=== PATIENT | male | born 1975 | race Two or more races ===

== ENCOUNTER 2017-03-18 06:29 | Emergency (ER) | payer BC ==
[~2017-03-18] VITALS: Ht 170.2 cm; Wt 70.0 kg
[2017-03-18 10:19] LABS: BASOPHILS % 0.7 % (0.0-2.0); EOSINOPHILS % 0.4 % (0.0-5.0); HEMATOCRIT. 44.4 % (42.0-52.0); HEMOGLOBIN. 15.6 g/dL (14.0-18.0); LYMPHOCYTES % 16.1 % (20.0-50.0); MEAN CORPUSCULAR HEMOGLOBIN 32.5 pg (28.0-32.0); MEAN CORPUSCULAR HGB CONC 35.1 g/dL (31.0-37.0); MEAN CORPUSCULAR VOLUME 92.7 fL (80.0-94.0); MEAN PLATELET VOLUME 8.1 fl (7.4-10.4); MONOCYTES % 5.9 % (2.0-8.0); NEUTROPHILS % 76.9 % (40.0-76.0); PLATELET 166 x1000/uL (130-400); RED BLOOD CELL COUNT 4.79 mill/uL (4.7-6.1); RED CELL DISTRIBUTION WIDTH 12.9 % (11.6-14.6); WHITE BLOOD COUNT 5.2 x1000/uL (4.5-11.0)
[2017-03-18 10:31] LABS: ALANINE AMINOTRANSFERASE 45 IU/L (13-61); ALBUMIN 3.9 g/dL (3.4-5.0); ANION GAP 10; CALCIUM 8.9 mg/dL (8.5-10.1); CARBON DIOXIDE 29 mEq/L (21-32); CHLORIDE 106 mEq/L (98-107); INDEX HEMOLYSI 1 (1-3); INDEX ICTERIC 1 (1-4); INDEX LIPEMIC 1 (1-3); UREA NITROGEN BLOOD 17 mg/dL (7-21); eGFR > 60 mL/min (>60)
[2017-03-18 10:49] VITALS: BP 115/69
== END 2017-03-18 10:54 | disposition home or self-care (01) ==
LOC: ER 07:36
DX: R11.2 Nausea with vomiting, unspecified (principal); R10.9 Unspecified abdominal pain; R19.7 Diarrhea, unspecified; R53.1 Weakness; R68.2 Dry mouth, unspecified
CPT/HCPCS: 36415; 80053; 85025; 99284; Z7610

== ENCOUNTER 2017-06-29 20:01 | Emergency (ER) | payer BC ==
[~2017-06-29] VITALS: Ht 170.2 cm; Wt 168.0 kg
[2017-06-29 20:07] VITALS: BP 124/88
== END 2017-06-29 22:20 | disposition left against medical advice (07) ==
LOC: ER 20:06
DX: R10.9 Unspecified abdominal pain (principal); Z53.21 Procedure and treatment not carried out due to patient leaving prior to being seen by health care provider

== ENCOUNTER 2017-07-29 15:18 | Emergency (ER) | payer BC ==
[~2017-07-29] VITALS: Ht 170.2 cm; Wt 76.0 kg
[2017-07-29 15:22] VITALS: BP 123/83
[2017-07-29] MEDS ORDERED: METR250T4 PO (15:24)
[2017-07-29] MEDS ORDERED: CIPR-264 PO (15:24)
== END 2017-07-29 17:35 | disposition left against medical advice (07) ==
LOC: ER 17:24
DX: R10.9 Unspecified abdominal pain (principal); Z53.21 Procedure and treatment not carried out due to patient leaving prior to being seen by health care provider

== ENCOUNTER 2017-09-07 12:34 | Inpatient (IN) | payer BC ==
[~2017-09-07] VITALS: Ht 205.7 cm; Wt 69.9 kg
[~2017-09-07 12:34] MED LIST: CIPR-264 PO; METR250T4 PO
[2017-09-07] MEDS ORDERED: SODIUM CHLORIDE 0.9% 1,000 ML IV ONE ×2 (13:58→16:06)
[2017-09-07 15:42] LABS: BASOPHILS % 0.7 % (0.0-2.0); EOSINOPHILS % 0.8 % (0.0-5.0); HEMATOCRIT. 46.7 % (42.0-52.0); HEMOGLOBIN. 16.4 g/dL (14.0-18.0); LYMPHOCYTES % 22.3 % (20.0-50.0); MEAN CORPUSCULAR HEMOGLOBIN 32.7 pg (28.0-32.0); MEAN CORPUSCULAR VOLUME 93.3 fL (80.0-94.0); MEAN PLATELET VOLUME 7.5 fl (7.4-10.4); MONOCYTES % 7.4 % (2.0-8.0); NEUTROPHILS % 68.8 % (40.0-76.0); PLATELET 195 x1000/uL (130-400); RED CELL DISTRIBUTION WIDTH 12.8 % (11.6-14.6)
[2017-09-07 15:45] LABS: CHLORIDE 99 mEq/L (98-107)
[2017-09-07 15:46] LABS: PARTIAL THROMBOPLASTIN TIME 29.4 sec (23.4-31.0); PROTHROMBIN TIME 10.8 sec (9.4-11.6)
[2017-09-07 15:50] LABS: CARBON DIOXIDE 28 mEq/L (21-32)
[2017-09-07 15:56] LABS: TROPONIN I 0.04 ng/mL (0.00-0.04)
[2017-09-07 15:57] LABS: CREATINE KINASE MB FRACTION < 0.5 ng/mL (0.5-3.6)
[2017-09-07] MEDS ORDERED: IOHEXOL-350 100 ML BOTTLE ONE (17:00)
[2017-09-07] MEDS ORDERED: NA PHOS,M-B/NA PHOS,DI-BA ENEMA 118ML PR PRN (17:30)
[2017-09-07] MEDS ORDERED: ONDANSETRON HCL 4MG/2ML VIAL IV PRN (17:30)
[2017-09-07] MEDS ORDERED: LORAZEPAM 2MG/ML CPJ IV PRN (17:30)
[2017-09-07] MEDS ORDERED: GUAIFENESIN 200MG/10ML SUGAR FREE UDC PO PRN (17:30)
[2017-09-07] MEDS ORDERED: DIPHENHYDRAMINE 50MG/ML VIAL IV PRN (17:30)
[2017-09-07] MEDS ORDERED: ZOLPIDEM TARTRATE 5MG TABLET PO PRN (17:30)
[2017-09-07] MEDS ORDERED: DOCUSATE SODIUM 100MG CAPSULE PO PRN (17:30)
[2017-09-07] MEDS ORDERED: MAGNESIUM/ALUMINUM HYDROXIDE/SIMETHICONE 30ML UDC PO PRN (17:30)
[2017-09-07] MEDS ORDERED: CLONIDINE 0.1MG TABLET PO PRN (17:30)
[2017-09-07] MEDS ORDERED: IPRATROPIUM/ALBUTEROL 0.5-3(2.5)MG/3ML NEB INH PRN (17:30)
[2017-09-07] MEDS ORDERED: ACETAMINOPHEN 325MG TABLET PO PRN (17:30)
[2017-09-07] MEDS ORDERED: TRAMADOL 50MG TABLET PO PRN (17:30)
[2017-09-07] MEDS ORDERED: KETOROLAC 15MG/ML VIAL IV PRN (17:30)
[2017-09-07] MEDS ORDERED: NITROGLYCERIN 0.4MG TABLET SL SL PRN (17:30)
[2017-09-07 17:36] LABS: *AMPHETAMINES SCREEN URINE NEGATIVE (NEGATIVE); *BARBITURATES SCREEN URINE NEGATIVE (NEGATIVE); *BENZODIAZEPINES SCREEN URINE NEGATIVE (NEGATIVE); *COCAINE SCREEN URINE NEGATIVE (NEGATIVE); CANNABINOID URINE SCREEN NEGATIVE (NEGATIVE); METHADONE URINE SCREEN NEGATIVE (NEGATIVE); OPIATES URINE SCREEN NEGATIVE (NEGATIVE); PHENCYCLIDINE URINE SCREEN NEGATIVE (NEGATIVE)
[2017-09-07 20:45] VITALS: BP 142/90
[2017-09-07 21:00] VITALS: BP 142/90
[2017-09-07] MEDS: SUCRALFATE 1 G/10 ML UDC PO SCH (23:23)
[2017-09-07] MEDS: FAMOTIDINE 20MG/2ML VIAL IV SCH (23:23)
[2017-09-07 23:39] LABS: CREATINE KINASE 78 IU/L (39-308); CREATINE KINASE MB FRACTION < 0.5 ng/mL (0.5-3.6); TROPONIN I 0.04 ng/mL (0.00-0.04)
[2017-09-07] MEDS: SODIUM CHLORIDE 0.9% 1,000 ML IV SCH (23:57)
[2017-09-08] VITALS: BP 122/82
[2017-09-08 04:00] VITALS: BP 95/55
[2017-09-08] MEDS: SUCRALFATE 1 G/10 ML UDC PO SCH ×4 (06:37→20:01)
[2017-09-08 07:38] VITALS: BP 108/72
[2017-09-08 07:58] LABS: CREATINE KINASE MB FRACTION 0.6 ng/mL (0.5-3.6); TROPONIN I 0.04 ng/mL (0.00-0.04)
[2017-09-08] MEDS: ENOXAPARIN 40MG/0.4ML SYR SUBCUT SCH (09:11)
[2017-09-08] MEDS: FAMOTIDINE 20MG/2ML VIAL IV SCH ×2 (09:13→20:01)
[2017-09-08 12:00] VITALS: BP_SYST 114; BP_SYST 122; BP_SYST 127; BP_DIAS 74; BP_DIAS 75; BP_DIAS 79
[2017-09-08] MEDS: SODIUM CHLORIDE 0.9% 1,000 ML IV SCH (13:05)
[2017-09-08 16:00] VITALS: BP 140/93
[2017-09-08 20:00] VITALS: BP 100/68
[2017-09-09] VITALS: BP 110/71
[2017-09-09] MEDS: SODIUM CHLORIDE 0.9% 1,000 ML IV SCH (02:58)
[2017-09-09 04:00] VITALS: BP 106/69
[2017-09-09] MEDS: SUCRALFATE 1 G/10 ML UDC PO SCH (06:17)
[2017-09-09 06:56] LABS: BASOPHILS % 1.3 % (0.0-2.0); EOSINOPHILS % 1.8 % (0.0-5.0); HEMATOCRIT. 43.3 % (42.0-52.0); HEMOGLOBIN. 15.1 g/dL (14.0-18.0); LYMPHOCYTES % 25.1 % (20.0-50.0); MEAN CORPUSCULAR HEMOGLOBIN 32.8 pg (28.0-32.0); MEAN CORPUSCULAR VOLUME 93.8 fL (80.0-94.0); MONOCYTES % 12.8 % (2.0-8.0); PLATELET 176 x1000/uL (130-400); RED BLOOD CELL COUNT 4.61 mill/uL (4.7-6.1); RED CELL DISTRIBUTION WIDTH 13.2 % (11.6-14.6)
[2017-09-09 08:00] VITALS: BP 106/70
[2017-09-09 08:04] LABS: CARBON DIOXIDE 30 mEq/L (21-32); CHLORIDE 105 mEq/L (98-107)
[2017-09-09 08:14] LABS: TROPONIN I 0.04 ng/mL (0.00-0.04)
[2017-09-09] MEDS: FAMOTIDINE 20MG/2ML VIAL IV SCH (09:00)
[2017-09-09] MEDS: ENOXAPARIN 40MG/0.4ML SYR SUBCUT SCH (09:00)
[2017-09-09 11:27] VITALS: BP 106/70
[2017-09-09 12:00] VITALS: BP_SYST 106; BP_SYST 122; BP_DIAS 70; BP_DIAS 85
== END 2017-09-09 12:10 | disposition home or self-care (01) | DRG 312 ==
LOC: ER 12:34 → 8WST 16:54 → EDBEDREQ 17:01 → SUPCPDRO 17:30 → ENRESERV 18:02
PROVIDERS: ADMIT Internal Medicine; ATTEND Internal Medicine
DX: R55 Syncope and collapse (principal); E87.1 Hypo-osmolality and hyponatremia; I11.9 Hypertensive heart disease without heart failure; K21.9 Gastro-esophageal reflux disease without esophagitis; Z87.09 Personal history of other diseases of the respiratory system; Z79.899 Other long term (current) drug therapy; Z82.49 Family history of ischemic heart disease and other diseases of the circulatory system; Z83.3 Family history of diabetes mellitus
CPT/HCPCS: 36415; 70450; 71010; 71275; 74174; 80048; 80053; 80061; 80305; 82550; 82553; 83036; 83735; 83880; 84443; 84484; 85025; 85610; 85730; 93005; 93306; 93970; 96360; 96361; 99285; J1650; J3490; J7030; Q9967

== ENCOUNTER 2017-09-13 21:37 | Emergency (ER) | payer BC ==
[~2017-09-13] VITALS: Ht 170.2 cm; Wt 68.0 kg
[2017-09-14 00:30] LABS: CLARITY URINE CLEAR (CLEAR); COLOR URINE YELLOW (YELLOW); GLUCOSE URINE NEGATIVE (NEGATIVE); KETONES URINE NEGATIVE (NEGATIVE); LEUKOCYTE ESTERASE URINE NEGATIVE (NEGATIVE); NITRITE URINE NEGATIVE (NEGATIVE); OCCULT BLOOD URINE NEGATIVE (NEGATIVE); PH URINE 7.5 (4.5-8.0); PROTEIN URINE NEGATIVE (NEGATIVE); SPECIFIC GRAVITY URINE 1.007 (1.005-1.030); UROBILINOGEN URINE 0.2 E.U./dL (0.2-1.0)
[2017-09-14] MEDS ORDERED: MAGNESIUM/ALUMINUM HYDROXIDE/SIMETHICONE 30ML UDC PO ONE (05:00)
[2017-09-14 05:45] VITALS: BP 109/72
== END 2017-09-14 06:17 | disposition home or self-care (01) ==
LOC: ER 21:37
DX: R55 Syncope and collapse (principal); I10 Essential (primary) hypertension
CPT/HCPCS: 81003; 82962; 93970; 99285; Z7610

== ENCOUNTER 2018-02-25 14:11 | Emergency (ER) | payer BC ==
[~2018-02-25] VITALS: Ht 172.7 cm; Wt 66.0 kg
[2018-02-25] MEDS ORDERED: MAGNESIUM/ALUMINUM HYDROXIDE/SIMETHICONE 30ML UDC PO STA (15:41)
[2018-02-25] MEDS ORDERED: ONDANSETRON HCL 4MG/2ML VIAL IV STA (15:41)
[2018-02-25] MEDS ORDERED: SODIUM CHLORIDE 0.9% 1,000 ML IV ONE (15:41)
[2018-02-25 15:59] LABS: BASOPHILS % 0.8 % (0.0-2.0); EOSINOPHILS % 0.5 % (0.0-5.0); HEMATOCRIT. 43.7 % (42.0-52.0); HEMOGLOBIN. 15.5 g/dL (14.0-18.0); LYMPHOCYTES % 14.8 % (20.0-50.0); MEAN CORPUSCULAR HEMOGLOBIN 33.3 pg (28.0-32.0); MEAN CORPUSCULAR VOLUME 93.6 fL (80.0-94.0); MEAN PLATELET VOLUME 8.2 fl (7.4-10.4); MONOCYTES % 9.8 % (2.0-8.0); NEUTROPHILS % 74.1 % (40.0-76.0); PLATELET 165 x1000/uL (130-400); RED BLOOD CELL COUNT 4.66 mill/uL (4.7-6.1); RED CELL DISTRIBUTION WIDTH 12.8 % (11.6-14.6)
[2018-02-25 16:03] LABS: INR 1.1; PROTHROMBIN TIME 11.1 sec (9.4-11.6)
[2018-02-25 16:06] LABS: CHLORIDE 99 mEq/L (98-107)
[2018-02-25 17:28] VITALS: BP 116/76
== END 2018-02-25 17:52 | disposition home or self-care (01) ==
LOC: ER 14:11
DX: R11.2 Nausea with vomiting, unspecified (principal); R55 Syncope and collapse; T36.0X5A Adverse effect of penicillins, initial encounter; Y92.018 Other place in single-family (private) house as the place of occurrence of the external cause
CPT/HCPCS: 36415; 80053; 83690; 85025; 85610; 93005; 96360; 99285; J7030; Z7610; J2405

== ENCOUNTER 2018-03-02 21:54 | Emergency (ER) | payer BC ==
[~2018-03-02] VITALS: Ht 170.2 cm; Wt 72.0 kg
[2018-03-02] MEDS ORDERED: NITROGLYCERIN 0.4MG TABLET SL SL PRN (22:30)
[2018-03-02 23:11] LABS: BASOPHILS % 0.9 % (0.0-2.0); EOSINOPHILS % 1.2 % (0.0-5.0); HEMATOCRIT. 42.7 % (42.0-52.0); LYMPHOCYTES % 27.7 % (20.0-50.0); MEAN CORPUSCULAR HEMOGLOBIN 32.6 pg (28.0-32.0); MEAN CORPUSCULAR VOLUME 92.6 fL (80.0-94.0); MEAN PLATELET VOLUME 7.9 fl (7.4-10.4); MONOCYTES % 11.2 % (2.0-8.0); PLATELET 188 x1000/uL (130-400); RED BLOOD CELL COUNT 4.61 mill/uL (4.7-6.1)
[2018-03-02 23:16] LABS: CHLORIDE 97 mEq/L (98-107)
[2018-03-02 23:19] LABS: INR 1.1
[2018-03-02 23:26] LABS: T4 FREE 1.13 ng/dL (0.76-1.46)
[2018-03-03 01:53] VITALS: BP 104/64
[2018-03-04] MEDS ORDERED: HYOS0.3723 PO (16:34)
== END 2018-03-03 02:09 | disposition home or self-care (01) ==
LOC: ER 21:54 → CANBEDREQ 03-03 04:38
DX: R00.2 Palpitations (principal); K76.89 Other specified diseases of liver; K59.00 Constipation, unspecified; I10 Essential (primary) hypertension; F41.9 Anxiety disorder, unspecified
CPT/HCPCS: 36415; 71045; 74176; 80053; 83880; 84439; 84443; 84484; 85025; 85610; 93005; 99285

== ENCOUNTER 2018-03-04 16:06 | Emergency (ER) | payer BC ==
[~2018-03-04] VITALS: Ht 170.2 cm; Wt 66.0 kg
[2018-03-04 16:23] VITALS: BP 132/88
[2018-03-04] MEDS ORDERED: HYOS0.3723 PO (16:34)
== END 2018-03-04 23:35 | disposition left against medical advice (07) ==
LOC: ER 16:50
DX: K59.00 Constipation, unspecified (principal); K76.89 Other specified diseases of liver; R00.2 Palpitations; K58.9 Irritable bowel syndrome, unspecified; F41.9 Anxiety disorder, unspecified; I10 Essential (primary) hypertension
CPT/HCPCS: 93005; 99283

== ENCOUNTER 2018-04-08 12:52 | Emergency (ER) | payer SELFPAY ==
[~2018-04-08] VITALS: Ht 167.6 cm; Wt 63.0 kg
[~2018-04-08 12:52] MED LIST changes: -CIPR-264 PO; +HYOS0.3723 PO; -METR250T4 PO
[2018-04-08 13:53] LABS: BASOPHILS % 0.8 % (0.0-2.0); EOSINOPHILS % 0.8 % (0.0-5.0); HEMATOCRIT. 43.8 % (42.0-52.0); HEMOGLOBIN. 15.3 g/dL (14.0-18.0); LYMPHOCYTES % 19.2 % (20.0-50.0); MEAN CORPUSCULAR HEMOGLOBIN 32.8 pg (28.0-32.0); MEAN CORPUSCULAR VOLUME 93.8 fL (80.0-94.0); MEAN PLATELET VOLUME 8.2 fl (7.4-10.4); MONOCYTES % 9.2 % (2.0-8.0); PLATELET 193 x1000/uL (130-400); RED BLOOD CELL COUNT 4.67 mill/uL (4.7-6.1); RED CELL DISTRIBUTION WIDTH 12.7 % (11.6-14.6)
[2018-04-08 13:54] LABS: CHLORIDE 99 mEq/L (98-107)
[2018-04-08] MEDS ORDERED: CYANOCOBALAMIN 1000MCG/ML VIAL IM ONE (14:45)
[2018-04-08] MEDS ORDERED: SODIUM CHLORIDE 0.9% 1,000 ML IV ONE (14:45)
[2018-04-08 15:48] VITALS: BP 132/90
== END 2018-04-08 16:16 | disposition home or self-care (01) ==
LOC: ER 13:48
DX: K52.9 Noninfective gastroenteritis and colitis, unspecified (principal); R55 Syncope and collapse; R53.1 Weakness; I10 Essential (primary) hypertension; R63.4 Abnormal weight loss; Z68.26 Body mass index [BMI] 26.0-26.9, adult
CPT/HCPCS: 36415; 80053; 85025; 93005; 96360; 96361; 96372; 99285; J3420; J7030; Z7610

== ENCOUNTER 2018-06-08 18:53 | Emergency (ER) | payer SELFPAY ==
[~2018-06-08] VITALS: Ht 170.2 cm; Wt 61.0 kg
[2018-06-08] MEDS ORDERED: ONDANSETRON 4MG ODT PO STA (19:38)
[2018-06-08 20:32] LABS: EOSINOPHILS % 1.7 % (0.0-5.0); HEMATOCRIT. 40.7 % (42.0-52.0); HEMOGLOBIN. 14.1 g/dL (14.0-18.0); LYMPHOCYTES % 28.1 % (20.0-50.0); MEAN CORPUSCULAR HEMOGLOBIN 32.6 pg (28.0-32.0); MEAN CORPUSCULAR VOLUME 94.5 fL (80.0-94.0); MONOCYTES % 11.5 % (2.0-8.0); NEUTROPHILS % 57.7 % (40.0-76.0); PLATELET 165 x1000/uL (130-400); RED BLOOD CELL COUNT 4.31 mill/uL (4.7-6.1); RED CELL DISTRIBUTION WIDTH 13.1 % (11.6-14.6)
[2018-06-08 20:36] LABS: CHLORIDE 99 mEq/L (98-107)
[2018-06-08 21:30] VITALS: BP 116/76
== END 2018-06-08 23:11 | disposition home or self-care (01) ==
LOC: ER 18:53
DX: R42 Dizziness and giddiness (principal); I10 Essential (primary) hypertension
CPT/HCPCS: 36415; 80053; 85025; 93005; 99285; Q0162; Z7610

== ENCOUNTER 2018-06-20 12:58 | Emergency (ER) | payer SELFPAY ==
[~2018-06-20] VITALS: Ht 175.3 cm; Wt 68.0 kg
[2018-06-20] MEDS ORDERED: SODIUM CHLORIDE 0.9% 1,000 ML IV ONE (13:55)
[2018-06-20 14:45] LABS: BASOPHILS % 0.9 % (0.0-2.0); EOSINOPHILS % 0.7 % (0.0-5.0); HEMATOCRIT. 41.5 % (42.0-52.0); HEMOGLOBIN. 14.3 g/dL (14.0-18.0); LYMPHOCYTES % 18.3 % (20.0-50.0); MEAN CORPUSCULAR HEMOGLOBIN 32.3 pg (28.0-32.0); MEAN PLATELET VOLUME 8.5 fl (7.4-10.4); MONOCYTES % 8.2 % (2.0-8.0); NEUTROPHILS % 71.9 % (40.0-76.0); PLATELET 169 x1000/uL (130-400); RED BLOOD CELL COUNT 4.42 mill/uL (4.7-6.1); RED CELL DISTRIBUTION WIDTH 13.1 % (11.6-14.6)
[2018-06-20 14:48] LABS: CHLORIDE 99 mEq/L (98-107)
[2018-06-20 14:51] LABS: INR 1.1; PROTHROMBIN TIME 11.2 sec (9.4-11.6)
[2018-06-20 14:56] LABS: CLARITY URINE CLEAR (CLEAR); COLOR URINE YELLOW (YELLOW); KETONES URINE NEGATIVE (NEGATIVE); LEUKOCYTE ESTERASE URINE NEGATIVE (NEGATIVE); NITRITE URINE NEGATIVE (NEGATIVE); OCCULT BLOOD URINE NEGATIVE (NEGATIVE); PROTEIN URINE NEGATIVE (NEGATIVE); SPECIFIC GRAVITY URINE 1.009 (1.005-1.030); UROBILINOGEN URINE 0.2 E.U./dL (0.2-1.0)
[2018-06-20 15:35] VITALS: BP 117/80
== END 2018-06-20 16:23 | disposition home or self-care (01) ==
LOC: ER 13:03
DX: F41.9 Anxiety disorder, unspecified (principal); I11.9 Hypertensive heart disease without heart failure; R51 Headache
CPT/HCPCS: 36415; 70450; 80053; 81003; 83690; 85025; 85610; 99285; J7030

== ENCOUNTER 2018-07-11 14:28 | Inpatient (IN) | payer SELFPAY ==
[~2018-07-11] VITALS: Ht 170.2 cm; Wt 59.9 kg
[2018-07-11 15:45] LABS: BASOPHILS % 0.9 % (0.0-2.0); EOSINOPHILS % 1.2 % (0.0-5.0); HEMATOCRIT. 42.5 % (42.0-52.0); HEMOGLOBIN. 14.7 g/dL (14.0-18.0); LYMPHOCYTES % 23.7 % (20.0-50.0); MEAN CORPUSCULAR HEMOGLOBIN 32.7 pg (28.0-32.0); MEAN CORPUSCULAR VOLUME 94.6 fL (80.0-94.0); MEAN PLATELET VOLUME 7.9 fl (7.4-10.4); MONOCYTES % 11.1 % (2.0-8.0); NEUTROPHILS % 63.1 % (40.0-76.0); PLATELET 179 x1000/uL (130-400); RED CELL DISTRIBUTION WIDTH 13.1 % (11.6-14.6)
[2018-07-11 15:49] LABS: CHLORIDE 101 mEq/L (98-107); INR 1.1
[2018-07-11] MEDS ORDERED: SODIUM CHLORIDE 0.9% 1,000 ML IV ONE (15:58)
[2018-07-11 16:55] LABS: D-DIMER < 0.19 mg/L FEU (<0.50); PARTIAL THROMBOPLASTIN TIME 29.6 sec (23.4-31.0)
[2018-07-11] MEDS ORDERED: ASPIRIN 325MG EC TABLET PO ONE (18:15)
[2018-07-11] MEDS ORDERED: GUAIFENESIN 200MG/10ML SUGAR FREE UDC PO PRN (20:30)
[2018-07-11] MEDS ORDERED: ACETAMINOPHEN 650MG/20.3ML UDC GT PRN (20:30)
[2018-07-11] MEDS ORDERED: HYDROCODONE/ACETAMINOPHEN 10/325MG TABLET PO PRN (20:30)
[2018-07-11] MEDS ORDERED: ACETAMINOPHEN 325MG TABLET PO PRN (20:30)
[2018-07-11] MEDS ORDERED: HYDROCODONE/ACETAMINOPHEN 5/325MG TABLET PO PRN (20:30)
[2018-07-11] MEDS ORDERED: ONDANSETRON 4MG ODT PO PRN (20:30)
[2018-07-11] MEDS ORDERED: DOCUSATE SODIUM 100MG CAPSULE PO PRN (20:30)
[2018-07-11] MEDS ORDERED: LORAZEPAM 2MG/ML CPJ IV PRN (20:30)
[2018-07-11] MEDS ORDERED: MAGNESIUM/ALUMINUM HYDROXIDE/SIMETHICONE 30ML UDC PO PRN (20:30)
[2018-07-11] MEDS ORDERED: ACETAMINOPHEN 650MG SUPP PR PRN (20:30)
[2018-07-11 23:01] VITALS: BP 124/77
[2018-07-11 23:41] LABS: CREATINE KINASE 71 IU/L (39-308)
[2018-07-11 23:42] LABS: CREATINE KINASE MB FRACTION < 1.0 ng/mL (0.5-3.6)
[2018-07-12] VITALS: BP 100/59
[2018-07-12] MEDS ORDERED: IPRATROPIUM/ALBUTEROL 0.5-3(2.5)MG/3ML NEB INH SCH
[2018-07-12 00:01] LABS: AMMONIA 29 uMol/L (<32)
[2018-07-12 04:00] VITALS: BP 99/61
[2018-07-12 07:22] LABS: BASOPHILS % 1.2 % (0.0-2.0); EOSINOPHILS % 1.5 % (0.0-5.0); HEMATOCRIT. 42.3 % (42.0-52.0); HEMOGLOBIN. 14.7 g/dL (14.0-18.0); MEAN CORPUSCULAR HEMOGLOBIN 33.2 pg (28.0-32.0); MEAN CORPUSCULAR VOLUME 95.6 fL (80.0-94.0); MEAN PLATELET VOLUME 8.2 fl (7.4-10.4); MONOCYTES % 10.2 % (2.0-8.0); NEUTROPHILS % 60.1 % (40.0-76.0); PLATELET 177 x1000/uL (130-400); RED BLOOD CELL COUNT 4.43 mill/uL (4.7-6.1); RED CELL DISTRIBUTION WIDTH 13.3 % (11.6-14.6)
[2018-07-12 07:45] LABS: CHLORIDE 106 mEq/L (98-107)
[2018-07-12 07:52] LABS: PHOSPHORUS 3.1 mg/dL (2.5-4.9)
[2018-07-12 07:54] LABS: LDL CHOLESTEROL 92 mg/dL (5-100)
[2018-07-12 07:56] LABS: HDL CHOLESTEROL 45 mg/dL (40-59)
[2018-07-12 07:58] LABS: CREATINE KINASE 62 IU/L (39-308); CREATINE KINASE MB FRACTION < 1.0 ng/mL (0.5-3.6); T4 FREE 1.05 ng/dL (0.76-1.46)
[2018-07-12 08:00] VITALS: BP 98/64
[2018-07-12 08:48] LABS: CLARITY URINE CLEAR (CLEAR); COLOR URINE YELLOW (YELLOW); KETONES URINE NEGATIVE (NEGATIVE); LEUKOCYTE ESTERASE URINE NEGATIVE (NEGATIVE); NITRITE URINE NEGATIVE (NEGATIVE); OCCULT BLOOD URINE NEGATIVE (NEGATIVE); PROTEIN URINE NEGATIVE (NEGATIVE); SPECIFIC GRAVITY URINE 1.013 (1.005-1.030); UROBILINOGEN URINE 0.2 E.U./dL (0.2-1.0)
[2018-07-12 09:04] LABS: *AMPHETAMINES SCREEN URINE NEGATIVE (NEGATIVE); *BARBITURATES SCREEN URINE NEGATIVE (NEGATIVE); *BENZODIAZEPINES SCREEN URINE NEGATIVE (NEGATIVE)
[2018-07-12 09:05] LABS: *COCAINE SCREEN URINE NEGATIVE (NEGATIVE); CANNABINOID URINE SCREEN NEGATIVE (NEGATIVE); METHADONE URINE SCREEN NEGATIVE (NEGATIVE); OPIATES URINE SCREEN NEGATIVE (NEGATIVE); PHENCYCLIDINE URINE SCREEN NEGATIVE (NEGATIVE)
[2018-07-12] MEDS: ENOXAPARIN 40MG/0.4ML SYR SUBCUT SCH (10:22)
[2018-07-12 10:45] LABS: T4 FREE 1.07 ng/dL (0.76-1.46)
[2018-07-12 12:00] VITALS: BP 99/67
[2018-07-12 14:00] VITALS: BP 116/84
[2018-07-12] MEDS ORDERED: HYOSCYAMINE SULFATE 0.375 MG PO SCH (14:30)
[2018-07-12] MEDS: OMEPRAZOLE 20MG CAPSULE EXTENDED RELEASE PO SCH ×2 (15:00→21:00)
[2018-07-12 17:05] LABS: CREATINE KINASE 56 IU/L (39-308)
[2018-07-12 17:07] LABS: CREATINE KINASE MB FRACTION < 1.0 ng/mL (0.5-3.6)
[2018-07-12 20:00] VITALS: BP 123/82
[2018-07-12 21:15] LABS: AMMONIA 28 uMol/L (<32)
[2018-07-13] VITALS: BP 100/63
[2018-07-13 00:40] LABS: CREATINE KINASE 58 IU/L (39-308)
[2018-07-13 00:41] LABS: CREATINE KINASE MB FRACTION < 1.0 ng/mL (0.5-3.6)
[2018-07-13 04:00] VITALS: BP 102/66
[2018-07-13] MEDS: OMEPRAZOLE 20MG CAPSULE EXTENDED RELEASE PO SCH (06:45)
[2018-07-13] MEDS ORDERED: REGADENOSON 0.4 MG/5 ML IV ONE (08:45)
[2018-07-13] MEDS: ENOXAPARIN 40MG/0.4ML SYR SUBCUT SCH (09:00)
[2018-07-13 10:12] LABS: CHLORIDE 103 mEq/L (98-107)
[2018-07-13 10:22] LABS: CREATINE KINASE 54 IU/L (39-308)
[2018-07-13 10:25] LABS: CREATINE KINASE MB FRACTION < 1.0 ng/mL (0.5-3.6)
[2018-07-13 11:42] LABS: BASOPHILS % 0.9 % (0.0-2.0); EOSINOPHILS % 1.9 % (0.0-5.0); HEMATOCRIT. 43.7 % (42.0-52.0); HEMOGLOBIN. 15.4 g/dL (14.0-18.0); LYMPHOCYTES % 21.4 % (20.0-50.0); MEAN CORPUSCULAR HEMOGLOBIN 33.5 pg (28.0-32.0); MEAN CORPUSCULAR VOLUME 95.1 fL (80.0-94.0); MEAN PLATELET VOLUME 8.7 fl (7.4-10.4); MONOCYTES % 9.8 % (2.0-8.0); PLATELET 180 x1000/uL (130-400); RED BLOOD CELL COUNT 4.59 mill/uL (4.7-6.1); RED CELL DISTRIBUTION WIDTH 13.3 % (11.6-14.6)
== END 2018-07-13 12:10 | disposition left against medical advice (07) | DRG 198 ==
LOC: ER 14:28 → EDBEDREQTM 18:14 → 5WST 18:14 → EDBEDREQ 18:14 → ENRESERV 20:28
PROVIDERS: ADMIT Internal Medicine; ATTEND Internal Medicine
DX: R07.9 Chest pain, unspecified (principal); I25.10 Atherosclerotic heart disease of native coronary artery without angina pectoris; I10 Essential (primary) hypertension; F41.9 Anxiety disorder, unspecified; R47.1 Dysarthria and anarthria; R20.0 Anesthesia of skin; F10.10 Alcohol abuse, uncomplicated; K58.0 Irritable bowel syndrome with diarrhea; H53.8 Other visual disturbances; Z53.21 Procedure and treatment not carried out due to patient leaving prior to being seen by health care provider
CPT/HCPCS: 36415; 70450; 70551; 71045; 80048; 80053; 80061; 80305; 81003; 82140; 82550; 82553; 82607; 82693; 82746; 83036; 83690; 83735; 83880; 84100; 84439; 84443; 84481; 84484; 85025; 85379; 85610; 85730; 93005; 93306; 93970; 96360; 96361; 97162; 97166; 99285; A9500; J1650; J7030

== ENCOUNTER 2023-08-31 17:34 | Emergency (ER) | payer MEDICAID ==
[~2023-08-31] VITALS: Ht 175.3 cm; Wt 66.0 kg
[2023-08-31 18:02] VITALS: BP 140/92; PULSE 99; RESP 18; TEMP 98.3; O2SAT 98
== END 2023-08-31 18:55 | disposition left against medical advice (07) ==
LOC: ER 17:34
DX: R10.9 Unspecified abdominal pain (principal); I10 Essential (primary) hypertension
CPT/HCPCS: 82962; 99283; Z7610